=== PATIENT | male | born 1995 | race Caucasian/White ===

== ENCOUNTER 2022-05-15 11:35 | Outpatient (CLI) | payer OTHER, SELFPAY ==
[2022-05-15 22:18] LABS: Thyroid Stimulating Hormone* 0.717 uIU/mL (0.270-4.20)
== END 2022-05-15 11:36 | disposition home or self-care (01) ==
LOC: LKVREF 11:36
PROVIDERS: PCP Family Medicine; Visit Provider Family Medicine
DX: Z01.818 Encounter for other preprocedural examination (principal); I49.9 Cardiac arrhythmia, unspecified; R63.4 Abnormal weight loss; F41.9 Anxiety disorder, unspecified
CPT/HCPCS: 84443

== ENCOUNTER 2022-05-22 12:53 | Outpatient (CLI) | payer OTHER, SELFPAY | END 2022-05-22 12:54 | disposition home or self-care (01) | PROVIDERS: PCP Family Medicine; Visit Provider Family Medicine | DX: Q23.1 Congenital insufficiency of aortic valve (principal); Z01.818 Encounter for other preprocedural examination | CPT/HCPCS: 93306 ==